=== PATIENT | male | born 1950 | race Caucasian/White ===

== ENCOUNTER 2020-08-18 12:03 | Emergency (ER) | payer OTHER ==
[~2020-08-18] VITALS: Ht 185.4 cm; Wt 98.4 kg
== END 2020-08-18 14:17 | disposition home or self-care (01) ==
LOC: ED 12:03
DX: S30.1XXA Contusion of abdominal wall, initial encounter (principal); S70.311A Abrasion, right thigh, initial encounter; V86.99XA Unspecified occupant of other special all-terrain or other off-road motor vehicle injured in nontraffic accident, initial encounter
CPT/HCPCS: 93926; 99284-25